=== PATIENT | female | born 1980 | race Caucasian/White ===

== ENCOUNTER 2020-06-05 08:45 | Outpatient (RCR) | payer BC | END 2020-07-23 | disposition still patient (30) | LOC: WSPT | DX: M54.2 Cervicalgia (principal) ==

== ENCOUNTER 2020-07-24 09:17 | Outpatient (RCR) | payer BC | END 2020-07-24 09:25 | disposition home or self-care (01) | LOC: WSPT 09:17 | DX: M54.2 Cervicalgia (principal) ==